=== PATIENT | male | born 1985 | race Caucasian/White ===

== ENCOUNTER → 2018-05-12 15:01 | Outpatient (CLI) | payer MEDICAID, SELFPAY ==
--- NOTE | 2018-05-12 15:03 | MR_ITS ---
MR cervical spine wo con, MR 3-d myelogram/MRCP HISTORY: PT states neck pain X 2-3 years. Left shoulder pain. No injury. ITS.REASON: neck pain ORDERING PHYSICIAN: Eugene Woo MD PATIENT AGE: 33 years Comparison: X-RAY 08/15/16 TECHNIQUE: Standard multiplanar multiecho sequences are performed without contrast. 3-D MIP and myelographic images are also rendered and reviewed FINDINGS: There is normal alignment. The craniocervical junction has an unremarkable appearance. C2-C3 and C3-C4 have an unremarkable appearance. C4-C5: Minimal bulging disc slightly eccentric to the left without impingement. C5-C6: Minimal bulging disc without impingement C6-C7: Unremarkable. C7-T1: Unremarkable. No disc herniation or canal stenosis. The cervical cord has an unremarkable appearance. There is some straightening of the cervical lordosis which could be due to patient positioning or muscle chiasm. IMPRESSION: 1. Minimal bulging disc at C4-C5 slightly eccentric to the left and at C5-C6 without impingement 2. No canal stenosis or extruded herniated disc evident. 3. Nonspecific straightening of cervical lordosis
== END ==
PROVIDERS: PCP Emergency Medicine; Visit Provider Emergency Medicine
DX: M54.2 Cervicalgia (principal)
CPT/HCPCS: 72141; 76376

== ENCOUNTER → 2019-05-18 11:05 | Outpatient (CLI) | payer BC, SELFPAY ==
--- NOTE | 2019-05-18 11:09 | XR_ITS ---
PROCEDURE: XR CHEST 2V CLINICAL HISTORY: COUGH Cough and fever COMPARISON: Chest from 07/28/2018 FINDINGS: The cardiomediastinal silhouette and pulmonary vascularity are within normal limits. The lungs are clear without infiltrates, suspicious nodules, or pleural effusions. Nodular opacity noted over the left midlung at the 5th interspace and may be due to nipple shadow. No acute bony findings. IMPRESSION: No acute findings. Dictated by: Brennon Daigle MD 05/18/2019 11:49 Electronically signed by Brennon Daigle MD in [place] 05/18/2019 11:49
[2019-05-18 13:17] LABS: Adenovirus,PCR Not Detected (NotDetected); Bordetella Pertussis Not Detected (NotDetected); Chlamydophila Pneumoniae, PCR Not Detected (NotDetected); Coronavirus 229E Not Detected (NotDetected); Coronavirus NL63 Not Detected (NotDetected); Coronavirus OC43 Not Detected (NotDetected); Coronovirus HKU1,PCR Not Detected (NotDetected); Human Metapneumovirus Not Detected (NotDetected); Influenza A, PCR Not Detected (NotDetected); Influenza AH1, 2009 Not Detected (NotDetected); Influenza AH1, PCR Not Detected (NotDetected); Influenza AH3,PCR Not Detected (NotDetected); Influenza B, PCR Not Detected (NotDetected); Mycoplasma Pneumoniae, PCR Not Detected (NotDetected); Parainfluenza 1, PCR Not Detected (NotDetected); Parainfluenza 2, PCR Not Detected (NotDetected); Parainfluenza 3, PCR Not Detected (NotDetected); Parainfluenza 4, PCR Not Detected (NotDetected); Respiratory Syncytial Virus Not Detected (NotDetected); Rhinovirus/Enterovirus Not Detected (NotDetected)
== END ==
PROVIDERS: PCP Nurse Practitioner Family; Visit Provider Nurse Practitioner Family
DX: R50.9 Fever, unspecified (principal); R05 Cough; J06.9 Acute upper respiratory infection, unspecified
CPT/HCPCS: 71046; 87486; 87581; 87633; 87798; U0003

== ENCOUNTER 2019-10-22 15:00 | Emergency (ER) | payer BC, SELFPAY ==
[2019-10-22 15:07] VITALS: BP 144/80; PULSE 79; RESP 19; TEMP 36.8; O2SAT 98; BMI 23.0
--- NOTE | 2019-10-22 15:27 | HMH.EDUTC ---
[facility] [place] Impression: Low back pain Qualifiers: Chronicity: unspecified Back pain laterality: right Sciatica presence: with sciatica Sciatica laterality: sciatica of right side Qualified Code(s): M54.41 - Lumbago with sciatica, right side Disposition: Home, Self-Care Condition on Discharge: Good Instructions: Low Back Pain, DI for Low Back Pain, Etodolac Additional Instructions: *Etodolac lola 6 hours with meal as needed for pain/inflammation *Not additional anti-inflammatory like motrin, aleve, advil with the above amount of Etodolac. You can still take Tylenol every 4 hours as needed if you need something else for pain *Ice 20 minutes every 2 hours for the first 48 hours after the initial injury followed by moist heat every 20 minutes 3-4 times a day to affected area *Muscle relaxer every 8 hours as needed for muscle spasms but remember, it WILL cause drowsiness You cannot take it and drive, operate machinery or care for small children. *Keep this area active, no movement leads to more stiffness, However take it easy and avoid heavy lifting pushing or pulling Over the counter Muscle rubs like biofreeze may help with pain and discomfort *Follow up with you family doctor if no improvement for further treatment in the next 48-72 hours Return if needed Straight to ER if any worsening of symptoms or loss of control of bowel or bladder Prescriptions: Cyclobenzaprine HCl [Flexeril 10mg tablet] 10 mg PO Q8HP PRN #9 tab PRN Reason: Muscle Spasm Transmission Status: Pending to [facility] Etodolac [Etodolac 200mg Cap*] 200 mg PO Q6H PRN #20 cap PRN Reason: Moderate Pain Transmission Status: Pending to [facility] Referrals: Eugene Woo MD [Primary Care Provider] - As needed Time of Disposition: 15:42 Medical Decision Making - Bright Inquiry Pt receiving controlled substance: No Bright was queried for this patient: No Vital Signs: 10/22/19 15:07 Temperature 98.2 F Temperature Source Oral Pulse Rate [Right Brachial] 79 Respiratory Rate 19 Blood Pressure [Right Arm] 144/80 H Blood Pressure Mean [Right Arm] 101 Blood Pressure Source [Right Arm] Automatic Cuff Blood Pressure Position [Right Arm] Sitting 02 Sat by Pulse Oximetry 98 Oxygen Delivery Method Room Air [facility] [place] - General Stated complaint: Pain on R side Time Seen by Provider: 10/22/19 15:28 Mode of Arrival: Ambulatory Source of Information: Patient Limitations: No Limitations Description of Symptoms (Recalled from Triage Doc. by RN): PATIENT C/O CONSTANT RIGHT SIDE PAIN X 2 WEEKS. 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 and for the last two weeks he has been having achy like pain in his right lower back area States that he has a history of sciatica and feels adrián like that when it starts States that he hasnt had any fever, denies known injury denies radiation of pain and denies loss of control of bowel or bladder - Related Data Previous Rx's Medication Instructions Recorded Cyclobenzaprine HCl [Flexeril 10mg 10 mg PO Q8HP PRN #9 tab 10/22/19 tablet] Etodolac [Etodolac 200mg Cap*] 200 mg PO Q6H PRN #20 cap 10/22/19 Allergies Allergy/AdvReac Type Severity Reaction Status Date / Time prednisone [PREDNISONE] Allergy Intermediate Verified 05/18/19 10:11 - Worker's Comp Is this a Worker's Comp case?: No [facility] History - Hepatitis A Screen Drug use history?: No High risk sexual behaviors?: No History of sexually transmitted infection?: No Currently employed?: No Childcare worker?: No Do you have indoor plumbing?: Yes Do you have electricity?: Yes Attestation statement:: This patient
[2019-10-22 15:49] VITALS: BP 144/80; PULSE 79; RESP 19; TEMP 36.8; O2SAT 98
[2019-10-22 15:55] LABS: Apearance,Urine Clear (Clear); Blood, Urine Negative (Negative); Color,Urine Yellow (Yellow); Glucose,Urine (UA) Negative (Negative); Ketones,Urine Negative (Negative); Protein,Urine Negative (Negative)
[2019-10-22 15:56] LABS: Bilirubin,Urine Negative (Negative); UTC Leukocyte Esterase,Urine Negative (Negative); UTC Nitrate,Urine Negative (Negative); Urobilinogen,Urine 1 EU/dl (0.2)
== END 2019-10-22 15:54 | disposition home or self-care (01) ==
PROVIDERS: Emergency Provider Nurse Practitioner; PCP Emergency Medicine
DX: M54.41 Lumbago with sciatica, right side (principal); F17.210 Nicotine dependence, cigarettes, uncomplicated; Z88.8 Allergy status to other drugs, medicaments and biological substances
CPT/HCPCS: 81003; 99201

== ENCOUNTER 2019-12-22 13:27 | Emergency (ER) | payer BC, SELFPAY ==
[2019-12-22 13:36] VITALS: BP 131/83; PULSE 100; RESP 18; TEMP 36.7; O2SAT 99; BMI 23.0
--- NOTE | 2019-12-22 13:45 | HMH.EDUTC ---
[facility] [place] Impression: Sinusitis Qualifiers: Sinusitis location: unspecified location Chronicity: unspecified Qualified Code(s): J32.9 - Chronic sinusitis, unspecified Disposition: Home, Self-Care Condition on Discharge: Good Instructions: Preventing the Spread of Coronavirus Discharge Instructions, Sore Throat, DI for Sinusitis, Sinusitis Additional Instructions: *Monitor Temp, Over the counter Motrin or Tylenol as directed/as needed Tylenol every 4 hours and Motrin every 6 hours (as long as your family doctor has told you that you can take it) for fever or pain. and straight to ER if unable to lower temp less than 101.0 after medication given *Warm salt water gargles may help to soothe the throat *Throat Lozenges *Warm fluids like tea with honey may help to soothe the throat *Sleep elevated *Humidifier/Vaporizer *Flonase 2 sprays in each nostril daily but be aware that it may take 2-3 days before you notice improvement *Bromfed may cause drowsiness. Know how it effects you (your child) before driving, caring for small child, or sending your child to school. Not other antihistamines/allergy medications while taking bromfed Your throat swab was sent for culture. Those results are typically sent to your primary care. Be sure to follow up in 2-3 days with your family doctor/primary care physician if no improvement so they can review those result and treat if necessary. If you don?t have a primary care doctor, I recommend you get one but in the mean time, you will have to return to a walk in clinic Follow up IMMEDIATELY for new or worsening symptoms or no Noticeable improvement over the next 48-72 hours. 911 for difficulty breathing or swallowing You was tested for today for COVID19 your test result should be back later this evening, you may call back later this evening to see if your test results are back and the result You was given a handout with instructions for Self Quarantine and Self isolation for while you wait on test results and what to do if they are positive Prescriptions: Azithromycin [Z-Emory 250mg Tab] 250 mg PO DIRECTED #6 tab Transmission Status: Pending to [facility] Referrals: Eugene Woo MD [Primary Care Provider] - As needed Forms: Work/School Release Time of Disposition: :51 Medical Decision Making - Bright Inquiry Pt receiving controlled substance: No Bright was queried for this patient: No Vital Signs: 12/22/19 13:36 Temperature 98.1 F Temperature Source Oral Pulse Rate [Radial] 100 H Respiratory Rate 18 Blood Pressure [Right Arm] 131/83 Blood Pressure Mean [Right Arm] 99 Blood Pressure Source [Right Arm] Automatic Cuff Blood Pressure Position [Right Arm] Sitting 02 Sat by Pulse Oximetry 99 Oxygen Delivery Method Room Air - Lab Data Lab results reviewed: Yes: I reviewed the patient's lab results. Orders (Tests/Meds): ORDERS Category Date Time Status Covid-19 Nasal PCR ([facility]) Routine Lab 12/22/19 13:36 Received [facility] [place] - General Stated complaint: fever,sore throat,weak Time Seen by Provider: 12/22/19 13:45 Mode of Arrival: Ambulatory Source of Information: Patient Limitations: No Limitations Description of Symptoms (Recalled from Triage Doc. 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
[2019-12-22 14:00] LABS: UTC Strep Screen (Rapid) Negative (Negative)
[2019-12-22 14:13] VITALS: BP 131/83; PULSE 100; RESP 18; TEMP 36.7; O2SAT 99
== END 2019-12-22 14:15 | disposition home or self-care (01) ==
PROVIDERS: Emergency Provider Nurse Practitioner; PCP Emergency Medicine
DX: Z20.828 Contact with and (suspected) exposure to other viral communicable diseases (principal); J32.9 Chronic sinusitis, unspecified; F17.210 Nicotine dependence, cigarettes, uncomplicated
CPT/HCPCS: 87880; 99202; U0003

== ENCOUNTER 2020-02-12 15:43 | Emergency (ER) | payer BC, SELFPAY ==
[2020-02-12 15:48] VITALS: BP 141/81; PULSE 92; RESP 18; TEMP 36.6; O2SAT 98; BMI 23.6
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
[2020-02-12 16:21] VITALS: BP 124/72; PULSE 91; RESP 20; TEMP 36.9; O2SAT 96; BMI 23.6
[2020-02-12 16:35] VITALS: BP 117/70; PULSE 70; O2SAT 98
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
[2020-02-12 16:47] LABS: Basophils # 0.1 K/mm3 (0-0.2); Basophils % 0.6 % (0.1-2.0); Eosinophils # 0.2 K/mm3 (0.0-0.4); Eosinophils % 1.8 % (0.1-12.0); Hematocrit 44.8 % (42.0-52.0); Hemoglobin 16.1 g/dL (14.1-18.0); Lymphocytes # 1.6 K/mm3 (0.7-4.5); Lymphocytes % 17.2 % (10-50); Mean Corpuscular Hemoglobin 32.4 pg (27.0-31.2); Mean Corpuscular Volume 89.9 fl (80-94); Mean Platelet Volume 7.7 fl (7.4-10.4); Monocytes # 0.6 K/mm3 (0.1-1.0); Neutrophils # 6.8 K/mm3 (1.8-7.8); Neutrophils % 74.3 % (37.0-80.0); Platelet Count 267 K/mm3 (142-424); Red Blood Count 4.99 M/mm3 (4.60-6.20); White Blood Count 9.2 K/mm3 (4.8-10.8)
[2020-02-12 16:50] LABS: Chloride 104 mmol/L (98-107); Potassium 4.1 mmoL/L (3.5-5.1); Sodium 138 mmol/L (136-145)
[2020-02-12 16:52] LABS: Blood Urea Nitrogen 17 mg/dl (9-20); Creatinine Clearance Estimated 77 mL/min (50-200); Estimated Glomerular Filt Rate 58 ml/min (>60); GFR (African American) 71 ML/MIN (>60)
[2020-02-12 16:53] LABS: Alanine Aminotransferase 22 U/L (12-78); Albumin Level 4.1 g/dl (3.5-5.0); Albumin/Globulin Ratio 1.3 (1.1-1.8); Alkaline Phosphatase 66 U/L (38-126); Anion Gap 8.1 mEq/L (5-15); Aspartate Amino Transferase 27 U/L (17-59); Bilirubin,Total 0.6 mg/dl (0.2-1.3); Calcium 9.4 mg/dl (8.4-10.2); Carbon Dioxide 30 mmol/L (22.0-30.0); Globulin 3.1 g/dL (1.3-3.2); Glucose 90 mg/dl (74-100); Total Protein,Serum 7.2 g/dl (6.3-8.2)
[2020-02-12 17:29] VITALS: BP 145/92; PULSE 64; O2SAT 98
[2020-02-12 18:00] VITALS: BP 138/78; PULSE 72; RESP 20; O2SAT 99
[2020-02-12 18:45] VITALS: BP 138/78; PULSE 72; RESP 20; TEMP 36.9; O2SAT 99
== END 2020-02-12 18:46 | disposition home or self-care (01) ==
LOC: UTC 15:47 → ER 16:05
PROVIDERS: Emergency Provider Emergency Medicine; PCP Emergency Medicine
DX: S30.1XXA Contusion of abdominal wall, initial encounter (principal); V29.3XXA Motorcycle rider (driver) (passenger) injured in unspecified nontraffic accident, initial encounter; Y92.89 Other specified places as the place of occurrence of the external cause; F17.210 Nicotine dependence, cigarettes, uncomplicated
CPT/HCPCS: 74177; 80053; 85025; 99283; Q9967

== ENCOUNTER → 2020-02-22 13:27 | Outpatient (CLI) | payer BC, SELFPAY ==
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
== END ==
PROVIDERS: PCP Emergency Medicine; Visit Provider Surgery
DX: S30.1XXA Contusion of abdominal wall, initial encounter (principal)
CPT/HCPCS: 76882

== ENCOUNTER → 2020-04-19 15:41 | Outpatient (CLI) | payer BC, SELFPAY ==
--- NOTE | 2020-04-19 15:46 | US_ITS ---
PROCEDURE: US EXTREMITY LT LIMITED CLINICAL INDICATION: Lt groin lumph node enlargement COMPARISON: CT ABDPELW/O CT ABD PELVIS W/O CONTRAST from 09/26/[address] ABDOMEN PELVIS W CON from 02/12/2020 FINDINGS: There is a 3.6 x 0.7 centimeter left groin lymph node with hilar blood flow but asymmetry. No discretely abnormal areas in the cortex. There is an adjacent 1.7 by 1.6 x 0.5 centimeter lymph node with normal hilar blood flow. Differential diagnosis for adenopathy is infectious versus neoplastic versus inflammatory causes. IMPRESSION: Enlarged left groin lymph node as described above. Dictated by: Violet Banegas MD 04/19/2020 17:29 Violet Banegas MD in [place] 04/19/2020 17:29
== END ==
LOC: RAD 15:43
PROVIDERS: PCP Emergency Medicine; Visit Provider Surgery
DX: R59.9 Enlarged lymph nodes, unspecified (principal)
CPT/HCPCS: 76882

== ENCOUNTER 2020-05-25 09:57 | Emergency (ER) | payer BC, SELFPAY ==
[2020-05-25 09:58] VITALS: BP 138/62; PULSE 70; RESP 16; TEMP 36.6; O2SAT 98; BMI 23.0
[2020-05-25 10:03] VITALS: BP 138/62; PULSE 66; O2SAT 96
--- NOTE | 2020-05-25 10:06 | HMH.EDGENADL ---
ED Disposition Clinical Impression: Burn of hand, second degree Qualifiers: Encounter type: initial encounter Burn of hand location: palm Laterality: left Qualified Code(s): T23.252A - Burn of second degree of left palm, initial encounter Disposition: Home, Self-Care Condition on Discharge: Good Instructions: DI for Barr Additional Instructions: Additional instructions for BARR: Clean your burn with a warm, wet, soapy washcloth each day by stroking over the burn one time. This will remove any loose blisters. Any blisters that remain will come off on subsequent days. Apply antibiotic ointment and bandage. Continue this treatment daily until the burn heals, usually 1-2 weeks. Return if high fever greater than 101 degrees, pus drainage, red streaks. Frankford as needed for pain. Tylenol or ibuprofen for less severe pain. Additional instructions for CONTROLLED SUBSTANCES: You have been prescribed a medication that is a controlled substance. Controlled substances include pain medications known as opiates and sedative nerve medications known as benzodiazepines. Tramadol, fioricet, and gabapentin are also controlled substances. Some common opiates include: Codeine (such as Tylenol #3) Hydrocodone (Vicodin, Lortab, Lorcet, Frankford) Oxycodone (Percocet, Percodan, Oxycodone, Oxy IR) Some common benzodiazepines include: Diazepam (Valium) Lorazepam (Ativan) Alprazolam (Xanax) Clonazepam (Klonopin) Oxazepam (Serax) All of these controlled substances are highly addictive and frequently abused. Misuse can and frequently does lead to addiction as well as overdose and . Medication should be stored in a locked cabinet or other secure storage unit. Do not store the medication in a motor vehicle. Short term supplies, 3 days or less, are prescribed because of the highly addictive nature of the medication. Any of the controlled substance medication NOT taken should be disposed of properly and NOT SAVED. The recommended method of disposing of unused medications is: Place the medicines in a sealable plastic bag. If the medicine is a solid, crush it or add water to dissolve it. Add something undesirable (cat litter, coffee grounds, etc.) Dispose of sealed bag in household trash Do not flush or pour unused medicines down a sink or drain. Controlled substances should not be shared, given away or sold. Because of the addictive nature and frequent abuse, these medications are sometimes stolen. These medications should be kept in a safe place where they cannot be stolen. Do not keep them in your car or purse. Lost or stolen prescriptions for controlled substances WILL NOT BE REFILLED in this emergency department, regardless of whether a police report was filed. Prescriptions: Hydrocod/Acet 5/325 mg [Frankford 5/325mg tablet] 1 tab PO Q6HP PRN #8 tab PRN Reason: Pain Transmission Status: Sent to [id number] Referrals: Eugene Woo MD [Primary Care Provider] - Forms: Work/School Release - Critical Care Critical Care Time: No Attestation: On , the high probability of a clinically significant, sudden or life threatening deterioration of the following system(s) required my full and direct attention, intervention and personal management. The time I documented below is in addition to time spent performing reported procedures but includes the following listed in this critical care notation. Medical Decision Making - Bright Inquiry Pt receiving controlled substance: Yes Bright was queried for this patient: Yes Risks and benefits of using a controlled substance: were discussed with pt by me Vital Signs: 05/25/20 09:58 05/25/20 10:03 Temperature 98 F Temperature Source Oral Pulse Rate 66 Pulse Rate [Radial] 70 Respiratory Rate 16 Blood Pressure 138/62 Blood Pressure [Right Arm] 138/62 Blood Pressure Mean 92 Blood Pressure Mean [Right Arm] 87 Blood Pressure Position [Right Arm] Sitting
--- NOTE | 2020-05-25 10:26 | PC.NURSE ---
PSO, ADAPTIC DRESSING APPLIED TO LT HAND
[2020-05-25 10:27] VITALS: BP 133/74; PULSE 78; RESP 16; TEMP 36.6; O2SAT 98
== END 2020-05-25 10:28 | disposition home or self-care (01) ==
PROVIDERS: Emergency Provider Emergency Medicine; PCP Emergency Medicine
DX: T23.252A Burn of second degree of left palm, initial encounter (principal); X17.XXXA Contact with hot engines, machinery and tools, initial encounter; Y92.69 Other specified industrial and construction area as the place of occurrence of the external cause; Y99.0 Civilian activity done for income or pay
CPT/HCPCS: 99281

== ENCOUNTER 2020-12-04 09:13 | Emergency (ER) | payer SELFPAY ==
[2020-12-04 09:15] VITALS: BP 125/71; PULSE 88; RESP 18; TEMP 36.6; O2SAT 98; BMI 23.6
[2020-12-04 09:34] LABS: UTC Strep Screen (Rapid) Negative (Negative)
--- NOTE | 2020-12-04 09:50 | HMH.EDUTC ---
[facility] [place] Disposition Clinical Impression: Viral syndrome Pharyngitis Qualifiers: Pharyngitis/tonsillitis etiology: unspecified etiology Qualified Code(s): J02.9 - Acute pharyngitis, unspecified Disposition: Home, Self-Care Condition on Discharge: Good Instructions: DI for Pharyngitis/Tonsillopharyngitis -- Adult, DI for COVID-19 (Suspected or Confirmed ), Preventing the Spread of Coronavirus Discharge Instructions Additional Instructions: Drink plenty of fluids. Take tylenol or ibuprofen for pain or fever. Take the medications as directed. Follow up with your regular doctor. GO TO THE ER FOR ANY WORSENING SYMPTOMS Quarantine until you know the results of your covid-19 test. If it is positive, the health department should call you and give you further instructions about your length of Quarantine and other things. Notify your school or workplace of your results and follow their instructions regarding return to work/school. Prescriptions: Brompheniramine/Pseudoephed/Dm [Bromfed Dm Cough Syrup] 5 ml PO Q6HP PRN #240 ml PRN Reason: Cough Transmission Status: Received by [facility] Azithromycin [Z-Emory 250mg Tab*] 250 mg PO UD DOSE PK #6 tab Transmission Status: Received by [facility] Referrals: Eugene Woo MD [Primary Care Provider] - Forms: Work/School Release Time of Disposition: 09:53 Medical Decision Making - Medical Records Medical records reviewed: No: I reviewed the patient's medical records. - Rbight Inquiry Pt receiving controlled substance: No Vital Signs: 12/04/20 09:15 12/04/20 09:58 Temperature 97.9 F 97.9 F Temperature Source Oral Pulse Rate 88 Pulse Rate [Right Brachial] 88 Respiratory Rate 18 18 Blood Pressure 125/71 Blood Pressure [Right Arm] 125/71 Blood Pressure Mean [Right Arm] 89 Blood Pressure Source [Right Arm] Automatic Cuff Blood Pressure Position [Right Arm] Sitting 02 Sat by Pulse Oximetry 98 Oxygen Delivery Method Room Air - Lab Data Lab results reviewed: Yes: I reviewed the patient's lab results. Lab Results 12/04/20 09:27: Strep Scn Rapid Clinic Negative Orders (Tests/Meds): ORDERS Category Date Time Status Covid-19 Nasal PCR ([facility]) Routine Lab 12/04/20 09:35 Received Strep Screen Confirmation Routine Micro 12/04/20 09:27 Received [facility] [place] HPI - General Stated complaint: trouble swallowing, sore throat Time Seen by Provider: 12/04/20 09:20 Mode of Arrival: Ambulatory Source of Information: Patient Limitations: No Limitations Description of Symptoms (Recalled from Triage Doc. by RN): PATIENT C/O TROUBLE SWALLOWING AND WEAKNESS X 3 DAYS HEENT Symptoms (Recalled from RN notes): Yes Resp Symptoms (Recalled from RN notes): No Skin Symptoms (Recalled from RN notes): No MS Symptoms (Recalled from RN notes): No Functional Status (Recalled from RN notes): WNL - History of Present Illness Provider Complaint: He c/o sore throat and feeling bad for the past 3 days. He has had chilling, but no documented fever. He denies body aches. - Related Data Previous Rx's Medication Instructions Recorded Azithromycin [Z-Emory 250mg Tab*] 250 mg PO UD DOSE PK #6 tab 12/04/20 Brompheniramine/Pseudoephed/Dm 5 ml PO Q6HP PRN #240 ml 12/04/20 [Bromfed Dm Cough Syrup] Allergies Allergy/AdvReac Type Severity Reaction Status Date / Time prednisone [PREDNISONE] Allergy Intermediate Verified 07/12/20 15:03 - Worker's Comp Is this a Worker's Comp case?: No [facility] History - Hepatitis A Screen Drug use history?: No High risk sexual behaviors?: No History of sexually transmitted infection?: No Currently employed?: No Childcare worker?: No Do you have indoor plumbing?: Yes Do you have electricity?: Yes Attestation statement:: This patient has been screened for Hepatitis A risk factors. I have reviewed the patient's past medical history: Yes Medical History: Denies:: Cancer, Diabetes Mellitus Type 1, D
[2020-12-04 09:58] VITALS: BP 125/71; PULSE 88; RESP 18; TEMP 36.6; O2SAT 98
== END 2020-12-04 10:00 | disposition home or self-care (01) ==
PROVIDERS: Emergency Provider Nurse Practitioner Family; PCP Emergency Medicine
DX: B34.9 Viral infection, unspecified (principal); Z20.822 Contact with and (suspected) exposure to COVID-19; J02.9 Acute pharyngitis, unspecified; F17.210 Nicotine dependence, cigarettes, uncomplicated
CPT/HCPCS: 87880; 99203; C9803; G0463; U0003; U0005

== ENCOUNTER → 2021-03-07 14:18 | Outpatient (CLI) | payer OTHER, SELFPAY | PROVIDERS: PCP Emergency Medicine; Visit Provider Nurse Practitioner | DX: Z20.822 Contact with and (suspected) exposure to COVID-19 (principal) | CPT/HCPCS: C9803; U0003; U0005 ==

== ENCOUNTER 2021-06-10 23:10 | Emergency (ER) | payer SELFPAY ==
[2021-06-10 23:35] VITALS: BP 116/79; PULSE 71; RESP 17; TEMP 36.6; O2SAT 99; BMI 25.1
--- NOTE | 2021-06-10 23:39 | XR_ITS ---
PROCEDURE INFORMATION: Exam: XR Right Hand Exam date and time: 06/10/2021 11:54 PM Age: 36 years old Clinical indication: Injury or trauma; Other: Hand got caught in storm door; Crushing; Right; Additional info: Slammed thumb in car door TECHNIQUE: Imaging protocol: XR Right hand. Views: 3 or more views. COMPARISON: No relevant prior studies available. FINDINGS: Bones/joints: No evidence of acute fracture. Individual joint spaces of the right hand appear well maintained. Osseous mineralization is normal. There is a small enostosis noted within the distal radius. Soft tissues: Normal. IMPRESSION: No evidence of acute fracture or significant overlying soft tissue swelling.
--- NOTE | 2021-06-11 00:58 | HMH.EDGENADL ---
ED Disposition Clinical Impression: Injury of right thumb, Subungual hematoma of right thumb Disposition: Home, Self-Care Condition on Discharge: Good Instructions: Trauma Additional Instructions: Return to the ED for any new or worsening symptoms, or for further concerns (such as but not limited to worsening or uncontrolled pain, prolonged numbness or tingling, worsening swelling, pale skin changes). Referrals: Eugene Woo MD [Primary Care Provider] - - Critical Care Critical Care Time: No Attestation: On 06/10/21, the high probability of a clinically significant, sudden or life threatening deterioration of the following system(s) required my full and direct attention, intervention and personal management. The time I documented below is in addition to time spent performing reported procedures but includes the following listed in this critical care notation. Medical Decision Making - Bright Inquiry Pt receiving controlled substance: Yes Bright was queried for this patient: No Risks and benefits of using a controlled substance: were not discussed with pt by me Vital Signs: 06/10/21 23:35 06/11/21 01:20 Temperature 97.8 F 98.5 F Temperature Source Oral Oral Pulse Rate 82 Pulse Rate [Right Brachial] 71 Respiratory Rate 17 18 Blood Pressure 109/82 L Blood Pressure [Right Arm] 116/79 Blood Pressure Mean [Right Arm] 91 Blood Pressure Source Automatic Cuff Blood Pressure Source [Right Arm] Automatic Cuff Blood Pressure Position Sitting Blood Pressure Position [Right Arm] Sitting 02 Sat by Pulse Oximetry 99 Oxygen Delivery Method Room Air Room Air Orders (Tests/Meds): ED MEDICATIONS Discontinued Medications Generic Name Dose Route Start Last Admin Trade Name Freq PRN Reason Stop Dose Admin Hydrocodone Bitart/Acetaminophen 2 tab 06/10/21 23:48 06/10/21 23:59 Hydrocodone/Apap 5/325 Mg Tablet PO 06/10/21 23:49 2 tab ONCE ONE Administration Medical Decision Narrative: DDx includes but not limited to phalanx fracture, dislocation, subungual hematoma. HDS, NAD, neurovascularly intact. Well appearing with no other injuries other than right thumb injury. XR without evidence of acute bony trauma. Pt given oral analgesia here in the ED with significant improvement of pain. Offered nail trephination here in the ED for subungual hematoma and it was done but without significant drainage. Pt stable for discharge. Given strict ED return precautions. General Adult HPI - General Chief complaint: Extremity Injury, Upper Stated complaint: AO 04/10/22 20:00 Injury right thumb Time Seen by Provider: 06/11/21 00:25 Mode of Arrival: Family Vehicle Limitations: No Limitations Description of Symptoms (Recalled from ER Triage Doc. by RN): pt accidentally slammed his right thumb in a car door. Pt states it squirted blood everywhere and won't quit hurting - History of Present Illness HPI narrative: 36 yo male presents for right thumb injury. States he accidentally closed car door on right thumb. States it was bleeding earlier but has stopped after putting pressure on it. States he has pain in that area with swelling after tonight's events. Denies other trauma. - Related Data Previous Rx's Medication Instructions Recorded Azithromycin [Z-Emory 250mg Tab*] 250 mg PO UD DOSE PK #6 tab 12/04/20 Brompheniramine/Pseudoephed/Dm 5 ml PO Q6HP PRN #240 ml 12/04/20 [Bromfed Dm Cough Syrup] Allergies Allergy/AdvReac Type Severity Reaction Status Date / Time prednisone [PREDNISONE] Allergy Intermediate Verified 07/12/20 15:03 [facility] History - Hepatitis A Screen Drug use history?: No High risk sexual behaviors?: No History of sexually transmitted infection?: No Currently employed?: No Childcare worker?: No Do you have indoor plumbing?: Yes Do you have electricity?: Yes Attestation statement:: This patient has been screened for Hepatitis A risk factors. Medical History: Denies:: Ca
[2021-06-11 01:20] VITALS: BP 109/82; PULSE 82; RESP 18; TEMP 36.9; O2SAT 99
== END 2021-06-11 01:22 | disposition home or self-care (01) ==
PROVIDERS: Emergency Provider Student in an Organized Health Care Education/Training Program; PCP Emergency Medicine
DX: S69.91XA Unspecified injury of right wrist, hand and finger(s), initial encounter (principal); S60.111A Contusion of right thumb with damage to nail, initial encounter; Z88.8 Allergy status to other drugs, medicaments and biological substances; Z87.891 Personal history of nicotine dependence; W23.0XXA Caught, crushed, jammed, or pinched between moving objects, initial encounter
CPT/HCPCS: 73130; 99213; G0463

== ENCOUNTER 2021-10-11 17:56 | Emergency (ER) | payer SELFPAY ==
[2021-10-11 17:57] VITALS: BP 138/49; PULSE 108; RESP 18; TEMP 38.2; O2SAT 98; BMI 23.7
[2021-10-11 18:35] VITALS: BP 138/49; PULSE 108; RESP 18; TEMP 38.2; O2SAT 98; BMI 23.8
[2021-10-11 18:44] VITALS: BP 138/49; PULSE 108; RESP 18; TEMP 38.2; O2SAT 98
--- NOTE | 2021-10-11 19:07 | HMH.EDUTC ---
[facility] [place] Disposition Clinical Impression: Viral syndrome, Exposure to COVID-19 virus Disposition: Home, Self-Care Condition on Discharge: Good Instructions: DI for Fever (Symptom) -- Adult, DI for COVID-19 (Suspected or Confirmed ), Preventing the Spread of Coronavirus Discharge Instructions Additional Instructions: *Monitor Temp, Over the counter Motrin or Tylenol as directed/as needed Tylenol every 4 hours and Motrin every 6 hours (as long as your family doctor has told you that you can take it) for fever or pain. and straight to ER if unable to lower temp less than 101.0 after medication given *Warm salt water gargles may help to soothe the throat *Throat Lozenges *Warm fluids like tea with honey may help to soothe the throat *Sleep elevated *Humidifier/Vaporizer Follow up IMMEDIATELY for new or worsening symptoms or no Noticeable improvement over the next 48-72 hours. 911 for difficulty breathing or swallowing You were tested for today for COVID19 your test result should be back in the next 24-48 hours, you may check your results on the [facility] My Health Portal Make sure to take your Vitamins Vit. C Vit D and Zinc if you can take them Referrals: Eugene Woo MD [Primary Care Provider] - As needed Forms: Work/School Release Medical Decision Making - Bright Inquiry Pt receiving controlled substance: No Bright was queried for this patient: No Vital Signs: 10/11/21 17:57 10/11/21 18:35 10/11/21 18:44 Temperature 100.8 F H 100.8 F H 100.8 F H Temperature Source Oral Oral Pulse Rate 108 H Pulse Rate [Radial] 108 H 108 H Respiratory Rate 18 18 18 Blood Pressure 138/49 L Blood Pressure [Right Arm] 138/49 L 138/49 L Blood Pressure Mean [Right Arm] 78 78 Blood Pressure Source [Right Arm] Automatic Cuff Blood Pressure Position [Right Arm] Sitting Sitting 02 Sat by Pulse Oximetry 98 98 Oxygen Delivery Method Room Air Room Air Orders (Tests/Meds): ORDERS Category Date Time Status Covid-19 Nasal PCR ([facility]) Routine Lab 10/11/21 18:33 Received [facility] [place] HPI - General Stated complaint: COVID+.[id number] Time Seen by Provider: 10/11/21 19:07 Mode of Arrival: Ambulatory Source of Information: Patient Limitations: No Limitations Description of Symptoms (Recalled from Triage Doc. by RN): PATIENT C/O FEVER AND BODY ACHES. REPORTS A POSITIVE AT HOME COVID TEST HEENT Symptoms (Recalled from RN notes): No Resp Symptoms (Recalled from RN notes): No Skin Symptoms (Recalled from RN notes): No MS Symptoms (Recalled from RN notes): No Functional Status (Recalled from RN notes): WNL - History of Present Illness Provider Complaint: Patient states that his son is positive for COVID States that he has been having fever, chills, bodyaches and over all not feeling well today States that he took a home COVID test and it was positive States that his fever was high earlier and he took some Tylenol and it is better now - Related Data Allergies Allergy/AdvReac Type Severity Reaction Status Date / Time prednisone [PREDNISONE] Allergy Intermediate Verified 07/12/20 15:03 - Worker's Comp Is this a Worker's Comp case?: No [facility] History - Hepatitis A Screen Attestation statement:: This patient has been screened for Hepatitis A risk factors. I have reviewed the patient's past medical history: Yes Medical History: Denies:: Cancer, Diabetes Mellitus Type 1, Diabetes Mellitus Type 2, Internal Pacemaker, MRSA Other Surgeries: Yes: No Previous Surgery. No: Pacemaker Amputation: No Fractures: No - Social History Smoking Status: Current every day smoker Tobacco Type: cigarettes # Packs/Day (cigarettes): 1 #Yrs smoked (if former smoker): 14 Alcohol Intake: never Substance Use Type: denies use Occupational Status: employed Housing: house Household Members: spouse, children Family Hx:: Cancer, Diabetes ROS Obtained: Yes All systems reviewed & no additional complaints, Yes Systems reviewed as appropri
== END 2021-10-11 19:24 | disposition home or self-care (01) ==
PROVIDERS: Emergency Provider Nurse Practitioner; PCP Emergency Medicine
DX: U07.1 COVID-19 (principal)
CPT/HCPCS: 99212; C9803; G0463; U0003; U0005

== ENCOUNTER 2022-02-11 17:59 | Emergency (ER) | payer BC, SELFPAY ==
--- NOTE | 2022-02-11 19:09 | EXP.UTC ---
Discharge Plan Disposition Patient Disposition: Home, Self-Care Condition: Good Prescriptions Prescriptions: New wohientlsulpmur-pfthhmvlg-BR [Bromfed DM] 2-30-10 mg/5 mL Syrup 5 ml PO Q6H PRN (Reason: Cough) Qty: 240 0RF azithromycin [Zithromax] 250 mg tablet 250 mg PO UD DOSE PK Qty: 6 0RF Rx Instructions: Take two (2) tablets today, then one (1) tablet days #2 thru #5 oseltamivir [Tamiflu] 75 mg capsule 75 mg PO BID Qty: 10 0RF methylprednisolone 4 mg Tablets,Dose Pack 4 mg PO DIRECTED Qty: 21 0RF ondansetron 4 mg Tablet,Disintegrating 4 mg PO Q8H PRN (Reason: Nausea) Qty: 20 0RF Referrals Follow up/Referrals: Eugene Woo MD [Primary Care Provider] - See instructions Activity Restrictions/Add. Instructions Additional Instructions/Restrictions: Drink plenty of fluids. Take tylenol or ibuprofen for pain or fever. Take the medications as directed. Follow up with your regular doctor. GO TO THE ER FOR ANY WORSENING SYMPTOMS Clinical Impressions Clinical Impression: Viral illness, Bronchitis Stand Alone Forms Stand Alone Forms: Work/School Release Instructions Patient Instructions: DI for Influenza -- Adult, Oseltamivir Discharge ED Provider: Sean Lopes [facility] General Stated complaint: fever, sore throat, weakness, body aches Time Seen by Provider: 02/11/22 19:09 History of Present Illness Provider Complaint: He states that for the past 2 days he has had chills, fever, cough, and chest congestion. Related Data Previous Rx's Medication Instructions Recorded azithromycin 250 mg tablet 250 mg PO UD DOSE PK #6 tabs 02/11/22 (Zithromax) zdgxzddgbuaqjxh-pdfznjwvozmlgyq-VZ 5 ml PO Q6H PRN Cough #240 mL 02/11/22 2 mg-30 mg-10 mg/5 mL oral syrup (Bromfed DM) methylprednisolone 4 mg tablets in 4 mg PO DIRECTED #21 tabs 02/11/22 a dose pack ondansetron 4 mg disintegrating 4 mg PO Q8H PRN Nausea #20 tabs 02/11/22 tablet oseltamivir 75 mg capsule (Tamiflu) 75 mg PO BID #10 caps 02/11/22 Allergies Allergy/AdvReac Type Severity Reaction Status Date / Time prednisone [PREDNISONE] Allergy Intermediate Verified 02/11/22 19:19 [facility] Disclaimer: The information contained in this section may have been updated after the patient was seen, as this information can be updated by other users. Social History Smoking Status: Current every day smoker tobacco type: cigarettes packs per day: 1 second hand exposure: Yes alcohol intake: never substance use type: denies use current occupational status: employed Travel in the last 8 weeks: None household members: spouse and children housing: house caffeine: Yes ROS Obtained: Yes All systems reviewed & no additional complaints except as documented Constitutional Constitutional: Reports chills and Reports fever(s) Eyes Eyes: Denies eye discharge ENT Ears, Nose, Mouth, and Throat: Reports as per HPI Cardiovascular Cardiovascular: Denies chest pain Respiratory Respiratory: Denies chest congestion and Reports cough Gastrointestinal Gastrointestingal: Reports nausea; Denies abdominal pain, constipation, cramping, diarrhea or vomiting Musculoskeletal Musculoskeletal: Denies arthralgias Integumentary/Breasts Skin/Breast: Denies rash Neurologic Neurologic: Denies paresthesias Physical Exam General General appearance: alert and in no apparent distress Head Head exam: atraumatic, normocephalic and normal inspection Eye Eye exam: Present normal appearance, PERRL and EOMI ENT ENT exam: Present normal exam, normal oropharynx, mucous membranes moist, TM's normal bilaterally and normal external ear exam Neck Neck exam: Present normal inspection, full ROM and trachea midline; Absent meningismus or lymphadenopathy Chest Chest inspection: Present normal inspection and symmetric chest wall rise; Absent tenderness Respiratory Respir
[2022-02-11 19:15] LABS: Coronavirus 19, PCR Not Detected (NotDetected); Influenza A, PCR Not Detected (NotDetected); Influenza B, PCR Not Detected (NotDetected)
[2022-02-11 19:17] VITALS: BP 122/74; PULSE 71; RESP 18; TEMP 36.6; O2SAT 99; BMI 22.4
[2022-02-11 19:17] LABS: UTC Strep Screen (Rapid) Negative (Negative)
[2022-02-11 19:45] VITALS: BP 122/74; PULSE 71; RESP 18; TEMP 36.6
== END 2022-02-11 19:49 | disposition home or self-care (01) ==
PROVIDERS: Emergency Provider Nurse Practitioner Family; PCP Emergency Medicine
DX: J40 Bronchitis, not specified as acute or chronic (principal); B34.9 Viral infection, unspecified
CPT/HCPCS: 87880; 99212; C9803; G0463; U0003; U0005

== ENCOUNTER 2022-07-31 16:59 | Emergency (ER) | payer BC, SELFPAY ==
[2022-07-31 17:01] VITALS: BP 137/87; PULSE 94; RESP 16; TEMP 36.6; O2SAT 97; BMI 21.7
--- NOTE | 2022-07-31 17:02 | HMH.EDGENADL ---
Discharge Plan Disposition Patient Disposition: Home, Self-Care Prescriptions Prescriptions: New ibuprofen 800 mg tablet 800 mg PO TID PRN (Reason: pain) 7 Days Qty: 20 0RF cyclobenzaprine 5 mg tablet 5 mg PO TID PRN (Reason: muscle spasm) 5 Days Qty: 15 0RF No Action ubhqarpauyumlqf-rkpkqysxx-XR [Bromfed DM] 2-30-10 mg/5 mL Syrup 5 ml PO Q6H PRN (Reason: Cough) Qty: 240 0RF azithromycin [Zithromax] 250 mg tablet 250 mg PO UD DOSE PK Qty: 6 0RF Rx Instructions: Take two (2) tablets today, then one (1) tablet days #2 thru #5 oseltamivir [Tamiflu] 75 mg capsule 75 mg PO BID Qty: 10 0RF methylprednisolone 4 mg Tablets,Dose Pack 4 mg PO DIRECTED Qty: 21 0RF ondansetron 4 mg Tablet,Disintegrating 4 mg PO Q8H PRN (Reason: Nausea) Qty: 20 0RF Referrals Follow up/Referrals: Eugene Woo MD [Primary Care Provider] - See instructions Clinical Impressions Clinical Impression: Injury resulting from fall from height, Contusion of back, Contusion of hip, left Discharge ED Provider: Mandeep Bliss General Adult HPI General Chief complaint: PAIN Stated complaint: AO07/29 back LT , LT leg pain Time Seen by Provider: 07/31/22 17:02 History of Present Illness HPI narrative: Patient is a 37-year-old male presenting with back pain and hip pain following a fall from a roof 2 days ago. States it was about 15 feet he slipped fell onto his lower back which struck the side of his boat and then subsequently hit the ground. He has been able to walk and ambulate since that time but has pain in his mid thoracic lower lumbar and bilateral hip areas. He has no pain in his chest or his abdomen or his cervical spine or his head. No other long bone pain that he complains about. No lower extremity weakness no saddle anesthesia urinary incontinence or bowel incontinence. Related Data Previous Rx's Medication Instructions Recorded azithromycin 250 mg tablet 250 mg PO UD DOSE PK #6 tabs 02/11/22 (Zithromax) dbqekwatrggnqsd-bjypriljjvrhbhy-WW 5 ml PO Q6H PRN Cough #240 mL 02/11/22 2 mg-30 mg-10 mg/5 mL oral syrup (Bromfed DM) methylprednisolone 4 mg tablets in 4 mg PO DIRECTED #21 tabs 02/11/22 a dose pack ondansetron 4 mg disintegrating 4 mg PO Q8H PRN Nausea #20 tabs 02/11/22 tablet oseltamivir 75 mg capsule (Tamiflu) 75 mg PO BID #10 caps 02/11/22 cyclobenzaprine 5 mg tablet 5 mg PO TID PRN muscle spasm 5 07/31/22 days #15 tabs ibuprofen 800 mg tablet 800 mg PO TID PRN pain 7 days #20 07/31/22 tabs Allergies Allergy/AdvReac Type Severity Reaction Status Date / Time prednisone [PREDNISONE] Allergy Intermediate Verified 02/11/22 19:19 [facility] Disclaimer: The information contained in this section may have been updated after the patient was seen, as this information can be updated by other users. Social History Smoking Status: Current every day smoker tobacco type: cigarettes packs per day: 1 second hand exposure: Yes alcohol intake: never substance use type: denies use current occupational status: employed Travel in the last 8 weeks: None household members: spouse and children housing: house caffeine: Yes ROS Obtained: Yes All systems reviewed & no additional complaints except as documented Physical Exam General General appearance: alert and other (Patient in distress rolling around in pain placed on logroll precautions) Head Head exam: atraumatic and normocephalic Neck Neck exam: Absent tenderness Chest Chest inspection: Present normal inspection; Absent symmetric chest wall rise or tenderness Respiratory Respiratory exam: Present normal lung sounds bilaterally; Absent respiratory distress Cardiovascular Cardiovascular exam: Present regular rate; Absent tachycardia Back Exam Back exam: Present other (No ecchymosis or deformities there is tenderness palpation in the mid and lower T spi
--- NOTE | 2022-07-31 17:13 | XR_ITS ---
PROCEDURE INFORMATION: Exam: XR Chest Exam date and time: 07/31/2022 5:22 PM Age: 37 years old Clinical indication: Injury or trauma; Fall; Blunt trauma (contusions or hematomas); Patient HX: Fell off roof 2 days ago, pain in back and sometimes has numbness and tingling down left leg, smoker; Additional info: Fall off roof TECHNIQUE: Imaging protocol: Radiologic exam of the chest. Views: 1 view. COMPARISON: CR XR CHEST 2V 05/18/2019 11:09 AM FINDINGS: Lungs: No focal lung consolidation/contusion. Pleural spaces: No pneumothorax. No pleural effusion. Heart/Mediastinum: Normal cardiac silhouette. Calcified mediastinal lymph nodes again noted likely due to old granulomatous disease. Bones/joints: No fractures are detected. IMPRESSION: No acute findings.
--- NOTE | 2022-07-31 17:13 | XR_ITS ---
PROCEDURE INFORMATION: Exam: XR Pelvis Exam date and time: 07/31/2022 5:20 PM Age: 37 years old Clinical indication: Injury or trauma; Fall; Blunt trauma (contusions or hematomas); Bilateral; Pelvic region; Patient HX: Fell off roof 2 days ago, pain in back and sometimes has numbness and tingling down left leg; Additional info: Fall off roof TECHNIQUE: Imaging protocol: Radiologic exam of the pelvis. Views: 1 or 2 view. COMPARISON: CT ABDOMEN PELVIS W CON 02/12/2020 4:53 PM FINDINGS: Bones/joints: No acute fracture. Sacrum is partially obscured by bowel contents. Soft tissues: Unremarkable. IMPRESSION: No acute findings.
--- NOTE | 2022-07-31 17:13 | CT_ITS ---
PROCEDURE INFORMATION: Exam: CT Thoracic Spine Without Contrast Exam date and time: 07/31/2022 5:37 PM Age: 37 years old Clinical indication: Injury or trauma; Fall; Blunt trauma (contusions or hematomas); Patient HX: Fell off roof 2 days ago, pain in back and sometimes has numbness and tingling down left leg; Additional info: Fall off roof TECHNIQUE: Imaging protocol: Computed tomography of the thoracic spine without contrast. Radiation optimization: All CT scans at this facility use at least one of these dose optimization techniques: automated exposure control; mA and/or kV adjustment per patient size (includes targeted exams where dose is matched to clinical indication); or iterative reconstruction. REPORTING DATA: Count of CT and Cardiac NM exams in prior 12 months: This patient has received 0 known CTs and 0 known cardiac nuclear medicine studies in the 12 months prior to the current study. COMPARISON: CT ABDOMEN PELVIS W CON 02/12/2020 4:53 PM FINDINGS: Bones/joints: No acute thoracic spine vertebral body fracture. Minimal degeneration is seen in the anterior margin of upper thoracic vertebral body endplates. No significant spinal canal stenosis or neural foraminal narrowing. Soft tissues: Calcified mediastinal lymph nodes likely due to old granulomatous disease. IMPRESSION: No acute compression fracture in the thoracic spine.
--- NOTE | 2022-07-31 17:13 | CT_ITS ---
PROCEDURE INFORMATION: Exam: CT Lumbar Spine Without Contrast Exam date and time: 07/31/2022 5:40 PM Age: 37 years old Clinical indication: Injury or trauma; Fall; Blunt trauma (contusions or hematomas); Patient HX: Fell off roof 2 days ago, pain in back and sometimes has numbness and tingling down left leg; Additional info: Fall off roof TECHNIQUE: Imaging protocol: Computed tomography of the lumbar spine without contrast. Radiation optimization: All CT scans at this facility use at least one of these dose optimization techniques: automated exposure control; mA and/or kV adjustment per patient size (includes targeted exams where dose is matched to clinical indication); or iterative reconstruction. REPORTING DATA: Count of CT and Cardiac NM exams in prior 12 months: This patient has received 0 known CTs and 0 known cardiac nuclear medicine studies in the 12 months prior to the current study. COMPARISON: CT THORACIC SPINE WO CON 07/31/2022 5:37 PM FINDINGS: Bones/joints: No acute compression fracture in the lumbar spine. There may be a Schmorl's node superior endplate of L1 unchanged in comparison to 02/12/2020 CT. Near normal alignment with minimal retrolisthesis of L4 on L5 similar to the prior study; marginal osteophytes are seen posteriorly at this level. Soft tissues: Poorly assessed on this bone algorithm study. IMPRESSION: No acute fracture or dislocation in the lumbar spine.
[2022-07-31 19:49] VITALS: BP 142/70; PULSE 63; RESP 19; TEMP 36.8; O2SAT 98
== END 2022-07-31 19:51 | disposition home or self-care (01) ==
PROVIDERS: Emergency Provider Student in an Organized Health Care Education/Training Program; PCP Emergency Medicine
DX: S30.0XXA Contusion of lower back and pelvis, initial encounter (principal); S70.02XA Contusion of left hip, initial encounter; W13.2XXA Fall from, out of or through roof, initial encounter; F17.210 Nicotine dependence, cigarettes, uncomplicated
CPT/HCPCS: 71045; 72128; 72131; 72170; 96372; 99284; 99285

== ENCOUNTER 2024-01-21 10:14 | Outpatient (CLI) | payer SELFPAY ==
[2024-01-21 18:56] LABS: Basophils # 0.1 K/mm3 (0-0.2); Eosinophils # 0.2 K/mm3 (0.0-0.4); Eosinophils % 2.7 % (0.1-12.0); Hematocrit 50.6 % (42.0-52.0); Hemoglobin 17.4 g/dL (14.1-18.0); Lymphocytes # 1.8 K/mm3 (0.7-4.5); Lymphocytes % 31.9 % (10-50); Mean Corpuscular HGB Conc 34.4 g/dL (31.8-35.4); Mean Corpuscular Hemoglobin 30.9 pg (27.0-31.2); Mean Platelet Volume 8.3 fl (7.4-10.4); Monocytes # 0.4 K/mm3 (0.1-1.0); Monocytes % 7.3 % (1.7-9.3); Neutrophils # 3.1 K/mm3 (1.8-7.8); Platelet Count 258 K/mm3 (142-424); Red Blood Count 5.62 M/mm3 (4.60-6.20); Red Cell Distribution Width 13.1 % (11.5-17.5); White Blood Count 5.5 K/mm3 (4.8-10.8)
[2024-01-21 19:17] LABS: Alanine Aminotransferase 28 U/L (12-78); Albumin Level 4.7 g/dl (3.5-5.0); Albumin/Globulin Ratio 1.7 (1.1-1.8); Alkaline Phosphatase 83 U/L (38-126); Anion Gap 12.4 mEq/L (5-15); Aspartate Amino Transferase 33 U/L (17-59); Bilirubin,Total 0.6 mg/dl (0.2-1.3); Blood Urea Nitrogen 15 mg/dl (9-20); Calcium 9.8 mg/dl (8.4-10.2); Carbon Dioxide 29 mmol/L (22.0-30.0); Chloride 102 mmol/L (98-107); Chol/HDL Ratio 4.2 (1-3.5); Cholesterol 212 mg/dl (140-200); Estimated Glomerular Filt Rate 84 ml/min (>60); GFR (African American) 102 ML/MIN (>60); Globulin 2.7 g/dL (1.3-3.2); Glucose 80 mg/dl (74-100); HDL Cholesterol 51 mg/dl (40-60); Potassium 4.4 mmoL/L (3.5-5.1); Sodium 139 mmol/L (136-145); Total Protein,Serum 7.4 g/dl (6.3-8.2); Triglycerides 160 mg/dl (30-150); VLDL Cholesterol 32 mg/dL (0-40)
[2024-01-21 19:31] LABS: Direct LDL Cholesterol 134.61 mg/dL (100-129)
[2024-01-21 19:35] LABS: T4 (Thyroxine) 11.6 ug/dl (5.53-11.0)
[2024-01-21 19:37] LABS: 25-OH Vitamin D, Total 20.8 ng/mL (30-100)
[2024-01-21 19:48] LABS: Thyroid Stimulating Hormone 0.57 uIU/mL (0.465-4.68)
[2024-01-21 22:46] LABS: HIV (1&2) Antibody Rapid NONREACTIVE (NONREACTIVE)
[2024-01-23 05:24] LABS: HCV Ab Non Reactive (Non Reactive)
[2024-01-30 02:14] LABS: Testosterone, Total, LC/MS 162 ng/dL (.)
== END 2024-01-21 23:59 | disposition home or self-care (01) ==
LOC: LAB.DROPOF 01-22 10:15
PROVIDERS: PCP Nurse Practitioner Family; Visit Provider Nurse Practitioner Family
DX: K92.2 Gastrointestinal hemorrhage, unspecified (principal); R59.9 Enlarged lymph nodes, unspecified; Z11.59 Encounter for screening for other viral diseases; Z11.4 Encounter for screening for human immunodeficiency virus [HIV]
CPT/HCPCS: 80053; 80061; 82306; 84403; 84436; 84443; 85025; 86803; 87389

== ENCOUNTER 2024-03-29 06:34 | Day surgery (SDC) | payer OTHER, SELFPAY ==
[2024-03-23 10:22] VITALS: BMI 21.7
[2024-03-29 06:58] VITALS: BP 127/74; PULSE 74; RESP 18; TEMP 36.2; O2SAT 98
--- NOTE | 2024-03-29 07:23 | P.PNANES_ITS ---
[facility] Disclaimer: The information contained in this section may have been updated after the patient was seen, as this information can be updated by other users. Medical History Abnormal colonoscopy GI bleed Surgical History H/O endoscopy Family History Grandmother DM type 2 (diabetes mellitus, type 2) Grandmother Cancer Grandfather Cancer Mother DM type 2 (diabetes mellitus, type 2) Social History (Updated 03/29/24 @ 06:50 by Irish Kendrick RN) Smoking Status: Former smoker tobacco type: cigarettes packs per day: 1 second hand exposure: Yes alcohol intake: never substance use type: denies use current occupational status: unemployed Travel in the last 8 weeks: None housing: house caffeine: Yes Have you lived/traveled outside US in past 30 days?: No Contact w/someone who lives/traveled outside US past 30 days?: No Exposure to someone with infectious disease in past 14 days?: No Do you have a fever (greater than 100.4 F or 38 C)?: No Have you tested positive for COVID-19: No Exposed to someone with COVID-19 in past 14 days?: No Do you have a sore throat?: No Do you have a cough?: No Do you have any weakness?: No Are you experiencing any nausea/vomitting?: No Do you have any diarrhea?: No Are you experiencing any unusual bleeding?: No Do you have any muscle aches/pain?: No Do you have any abdominal pain?: No Are you experiencing loss of taste or smell?: No [facility] Anesthesia Checklist Patient Identification Patient Identification: Arm Band Structural Data Admitted From: Home Planned Operative Procedure/s: EGD/Colonoscopy Consent for Planned Operative Procedure(s) Verified: Yes Verified Documents: Surgical Consent and History and Physical NPO Status Verified Time NPO: 00:00 Additional verifications Anesthesia Reactions: No Airway Assessment Mallampati Score:: Class II C-Spine Mobility Assessed: Yes TMJ Mobility Assessed: Yes Dentition: Good Dentition Neurological Assessment Level of Consciousness: Awake, Alert and Appropriate Anesthesia Plan Anesthesia Risk discussed: Yes Anesthesia Plan: Verified ASA Class: II Anesthesia Type: MAC
[2024-03-29 07:58] VITALS: O2SAT 100
--- NOTE | 2024-03-29 08:00 | P.HP_ITS ---
History of Present Illness *Admission Date: 03/29/24 *Reason for visit:: Globus sensation/bright red blood per rectum *History of present illness: Mr. Quinonez is a 39-year-old gentleman who is here for diagnostic EGD and diagnostic colonoscopy. The patient has had swallowing difficulties with globus sensation. The patient also has had frequent bright red rectal bleeding with blood clots but sometimes appear in his underwear even when he is not having a bowel movement. The examination is deemed medically necessary for diagnostic EGD and colonoscopy. The patient has been seen, interviewed and examined prior to the procedure by both myself and the anesthesia provider. [facility] Disclaimer: The information contained in this section may have been updated after the patient was seen, as this information can be updated by other users. Medical History Abnormal colonoscopy GI bleed Surgical History H/O endoscopy Family History Grandmother DM type 2 (diabetes mellitus, type 2) Grandmother Cancer Grandfather Cancer Mother DM type 2 (diabetes mellitus, type 2) Social History (Updated 03/29/24 @ 06:50 by Irish Kendrick RN) Smoking Status: Former smoker tobacco type: cigarettes packs per day: 1 second hand exposure: Yes alcohol intake: never substance use type: denies use current occupational status: unemployed Travel in the last 8 weeks: None housing: house caffeine: Yes Have you lived/traveled outside US in past 30 days?: No Contact w/someone who lives/traveled outside US past 30 days?: No Exposure to someone with infectious disease in past 14 days?: No Do you have a fever (greater than 100.4 F or 38 C)?: No Have you tested positive for COVID-19: No Exposed to someone with COVID-19 in past 14 days?: No Do you have a sore throat?: No Do you have a cough?: No Do you have any weakness?: No Are you experiencing any nausea/vomitting?: No Do you have any diarrhea?: No Are you experiencing any unusual bleeding?: No Do you have any muscle aches/pain?: No Do you have any abdominal pain?: No Are you experiencing loss of taste or smell?: No Other Medical History Have you received the Flu Vaccine for this season: No Have you received the Pneumonia Vaccine: No Review of Systems Review of Systems Review of systems (narrative): Negative *Cardiovascular Comments: Negative *Gastrointestinal Comments: Negative *Genitourinary Comments: Negative *Musculoskeletal Comments: Negative *Neurologic Comments: Negative Meds Home Medications and Allergies Home Medications ?Medication ?Instructions ?Recorded ?Confirmed ?Type buprenorphine 8 mg-naloxone 2 mg 1 tab sublingual DAILY 01/21/24 03/29/24 History sublingual tablet New Prescriptions to Start Prescriptions: Allergies Allergy/AdvReac Type Severity Reaction Status Date / Time prednisone (PREDNISONE) Allergy Intermediate Hallucinati Verified 03/29/24 06:50 ng Exam Data for Last 24 hours Vital signs and Labs for Last 24 Hours: Temp Pulse Resp BP Pulse Ox O2 Del Method O2 Flow Rate 97.1 F L 74 18 127/74 98 Nasal Cannula 5 03/29/24 06:58 03/29/24 06:58 03/29/24 06:58 03/29/24 06:58 03/29/24 06:58 03/29/24 07:58 03/29/24 07:58 *Routine HEENT Exam Head: Present normocephalic Eye: Present EOMI and PERRL ENT: Present mucous membranes moist *Routine Neck Exam Neck: Present supple *Routine Respiratory Exam Respiratory: Present CTA bilaterally *Routine Cardiovascular Exam Cardiovascular: Present RRR *Routine Abdominal Exam Abdominal: Present soft and normoactive bowel sounds; Absent tenderness *Routine Rectal Exam Rectal:: deferred *Routine Genitalia Exam Genitalia:: deferred *Routine Extremities Exam Extremities: Absent cyanosis, clubbing or edema *Routine Skin Exam Skin: Present warm; Absent rash *Routine Neurological Exam Neurological: Present alert and oriented X3 Assessment and Plan *Assessment and plan (1) GERD (gastroesophageal reflux disease): Status: Acute Category: Medical Code(s): K21.9 - Gastro-esophageal reflux disease without esophagitis (2) Dysphagia: Status: Acute Category: Medical Code(s): R13.10 - Dysphagia, unspecified (3) Globus sensation: Status: Acute Category: Medical Code(s): R09.A2 - Foreign body sensation, throat (4) Bright red rectal bleeding: Status: Acute Category: Medical Code(s): K62.5 - Hemorrhage of anus and rectum (5) Mucus in stool: Status: Acute Category: Medical Code(s): R19.5 - Other fecal abnormalities Plan A/P: 1. GERD with globus sensation and intermittent dysphagia for upper endoscopy and bright red rectal bleeding with blood clots for diagnostic colonoscopy is the preprocedural diagnosis. The patient will be anesthetized/sedated using MAC sedation. The patient has been seen and examined. Cardiac and lung assessment prior to the examination is stable. Proceed with planned diagnostic EGD and colonoscopy
--- NOTE | 2024-03-29 08:03 | HMH.PROCNOTE ---
[facility] Procedure Note Date: 03/29/24 Time: 08:11 Procedure Note:: Upper Endoscopy Procedure Report: Esophagogastroduodenoscopy with cold biopsies and TTS balloon dilation Endoscopost: Robert Deutsch II, MD Referring Physician: MISTI Salinas Date of Procedure: March 29, 2024 Equipment: Olympus GIF 190 standard upper endoscope Sedation: MAC sedation Indications: Mr. Quinonez is a 39-year-old gentleman who is here for diagnostic upper endoscopy. The patient does get some intermittent swallowing difficulties and has globus sensation presently. He has some intermittent heartburn and reflux. The patient does report bright red rectal bleeding with mucus. He has been using ibuprofen intermittently. Diagnostic panendoscopy was performed for further evaluation. Procedure: Prior to the procedure, a history and physical exam was performed, and patient's medications and allergies were reviewed. The risks, benefits and alternatives of the sedation and procedure were discussed with the patient. All questions were answered and informed consent was obtained. The patient was brought to the procedure room. Patient identification and proposed procedure were verified by the physician and the nurse. The patient was placed in a left lateral decubitus position and the scope was passed under direct vision. Throughout the procedure, the patient's blood pressure, pulse, and oxygen saturations were monitored continuously. The upper GI endoscopy was accomplished without difficulty. The patient tolerated the procedure well. Findings: The scope was passed directly into the upper esophagus and advanced to the third portion of the duodenum. The post bulbar duodenum and duodenal bulb were normal with normal mucosa and conniventes. The scope was withdrawn through a normal duodenal bulb and pylorus into the stomach. There was minimal reactive gastropathy of the antrum. The remainder of the body and fundus were normal. Biopsies were taken from the antrum. Upon retroflexion there was a 2 to 3 cm medium sized hiatal hernia. The scope was then withdrawn into the esophagus. There were 2 tongues of salmon-colored mucosa distally that were biopsied to rule out very short segment Gaytan's esophagus. There was no evidence of reflux esophagitis, peptic stricture, furrowing or corrugation. There was no inlet patch. There were tertiary contractions and evidence of mild esophageal dysmotility. The entire esophagus was dilated to 60 Hebrew/20 mm with a TTS hydrostatic balloon. There was mild resistance at the cricopharyngeus. The remainder of the esophageal mucosa was normal. Impression: 1. Nonerosive GERD with mild esophageal dysmotility and medium sized (2 to 3 cm) hiatal hernia 2. Short tongues of salmon-colored mucosa in distal esophagus?rule out short segment Gaytan's esophagus 3. Minimal antral reactive gastropathy Plan: I will follow-up the biopsies. I would recommend PPI therapy. I will proceed with diagnostic colonoscopy if patient is adequately prepped.
--- NOTE | 2024-03-29 08:20 | P.PCN_ITS ---
[facility] Procedure Note Date: 03/29/24 Time: 08:20 Procedure Note:: Sigmoidoscopy procedure Report: Attempted colonoscopy Endoscopist: Robert Deutsch II, MD Referring physician: MISTI Salinas Date of Procedure: March 29, 2023 Equipment: Olympus 190 variable stiffness pediatric colonoscope Sedation: MAC sedation Indication: Mr. Quinonez is a 39-year-old gentleman who is here for diagnostic colonoscopy. The patient has had frequent bright red rectal bleeding with blood clots not just with his bowel movements but sometimes in his underwear. He also will note some mucus with his bowel movements. He did have a colonoscopy more than 10 [address] ago [address] [facility] (Chico Rhodes MD?General Surgery). He struggled with symptoms related to the colonoscopy for a couple weeks afterwards. The patient does report constipation a couple of times a month. He also has obstipation with incomplete defecation and excessive wiping. His bowel movements vary between hard and regular and he does get some straining. Blood can drip into the commode. He reports no external hemorrhoids or hemorrhoid prolapse. He has no rectal pain. He reports no abdominal pain or weight loss. He does state that his paternal uncle had colon cancer in his 50s. He reports no use of aspirin or anticoagulation. He was using ibuprofen intermittently but stopped doing this and now takes Tylenol. Procedure: Prior to the procedure, a history and physical exam was performed, and patient's medications and allergies were reviewed. The risks, benefits and alternatives of the sedation and procedure were discussed with the patient. All questions were answered and informed consent was obtained. The patient was brought to the procedure room. Patient identification and proposed procedure were verified by the physician and the nurse. The patient was placed in a left lateral decubitus position and the scope was passed under direct vision. Throughout the procedure, the patient's blood pressure, pulse, and oxygen saturations were monitored continuously. The colonoscopy was accomplished without difficulty. The patient tolerated the procedure well. Findings: On digital rectal examination there was normal rectal tone. There were no external hemorrhoids. The scope was then inserted through the anal canal to the rectum and advanced to the distal sigmoid. There was abundant solid stool within the sigmoid colon and the scope could not be advanced proximally due to very poor bowel preparation. Upon retroflexion within the rectum there were grade 2 internal hemorrhoids. Impression: 1. Unprepped colonoscopy 2. Grade 2 internal hemorrhoids Plan: Based upon the patient's symptoms with volume of bleeding, mucus and bowel function, he will need full diagnostic colonoscopy. I will offer continued clear liquids today with further preparation and attempt colonoscopy tomorrow.
[2024-03-29 08:21] VITALS: BP 86/44; PULSE 69; RESP 18; TEMP 36.3; O2SAT 97
[2024-03-29 08:31] VITALS: BP 89/51; PULSE 62; RESP 18; O2SAT 97
[2024-03-29 08:41] VITALS: BP 102/62; PULSE 67; RESP 20; O2SAT 99
[2024-03-29 09:10] VITALS: BP 112/62; PULSE 67; RESP 20; O2SAT 99
== END 2024-03-29 09:10 | disposition home or self-care (01) ==
PROVIDERS: PCP Nurse Practitioner Family; Visit Provider Internal Medicine Gastroenterology
PROC: 0DJ08ZZ Inspection of Upper Intestinal Tract, Via Natural or Artificial Opening Endoscopic (ICD-10-PCS; CPT 45378; principal; 2024-03-29 08:00)
DX: K21.9 Gastro-esophageal reflux disease without esophagitis (principal); R13.10 Dysphagia, unspecified; R09.A2 Foreign body sensation, throat; K62.5 Hemorrhage of anus and rectum; R19.5 Other fecal abnormalities; K22.70 Barrett's esophagus without dysplasia; K31.9 Disease of stomach and duodenum, unspecified; K44.9 Diaphragmatic hernia without obstruction or gangrene; K22.4 Dyskinesia of esophagus; K64.1 Second degree hemorrhoids
CPT/HCPCS: 43239; 43249; 45378; C1726

== ENCOUNTER 2024-03-30 11:29 | Day surgery (SDC) | payer OTHER, SELFPAY ==
[2024-03-30 11:46] VITALS: BP 130/70; PULSE 68; RESP 16; TEMP 36.7; O2SAT 99; BMI 22.1
[2024-03-30] MEDS: LACTATED RINGERS 1000ML 1,000 ML 50 ML IV (11:55)
--- NOTE | 2024-03-30 12:31 | P.PNANES_ITS ---
[facility] Disclaimer: The information contained in this section may have been updated after the patient was seen, as this information can be updated by other users. Medical History (Updated 03/30/24 @ 11:49 by Jeri Perdomo RN) History of gastroesophageal reflux (GERD) Abnormal colonoscopy GI bleed Surgical History H/O endoscopy Family History Grandmother DM type 2 (diabetes mellitus, type 2) Grandmother Cancer Grandfather Cancer Mother DM type 2 (diabetes mellitus, type 2) Social History (Updated 03/30/24 @ 11:49 by Jeri Perdomo RN) Smoking Status: Current every day smoker tobacco type: cigarettes packs per day: 1 second hand exposure: Yes alcohol intake: never substance use type: denies use current occupational status: unemployed Travel in the last 8 weeks: None housing: house caffeine: Yes Have you lived/traveled outside [place] in past 30 days?: No Contact w/someone who lives/traveled outside US past 30 days?: No Exposure to someone with infectious disease in past 14 days?: No Do you have a fever (greater than 100.4 F or 38 C)?: No Have you tested positive for COVID-19: No Exposed to someone with COVID-19 in past 14 days?: No Do you have a sore throat?: No Do you have a cough?: No Do you have any weakness?: No Are you experiencing any nausea/vomitting?: No Do you have any diarrhea?: No Are you experiencing any unusual bleeding?: No Do you have any muscle aches/pain?: No Do you have any abdominal pain?: No Are you experiencing loss of taste or smell?: No [facility] Anesthesia Checklist Patient Identification Patient Identification: Arm Band, Family and Verbal (Name & ) Structural Data Admitted From: Home Planned Operative Procedure/s: Colonoscopy Consent for Planned Operative Procedure(s) Verified: Yes Verified Documents: Surgical Consent and History and Physical NPO Status Verified Time NPO: 08:30 Chart Verification Results Verified: CBC, BMP, ECG and Chest Xray Additional verifications Patient : No Anesthesia Reactions: No Previous Colonoscopy: Yes Cardiovascular Assessment Heart Sounds: S1 & S2 Pulse Rhythm: Irregular Peripheral Edema: No Airway Assessment Mallampati Score:: Class II C-Spine Mobility Assessed: Yes TMJ Mobility Assessed: Yes Dentition: Poor Dentition (Nothing loose per pt.) Neurological Assessment Level of Consciousness: Awake, Alert, Appropriate and Follows Commands Hx Seizures: No Numbness or tingling in extremities: No Anesthesia Plan Anesthesia Risk discussed: Yes Anesthesia Plan: Verified ASA Class: III Anesthesia Type: MAC
--- NOTE | 2024-03-30 12:46 | HMH.PROCNOTE ---
[facility] Procedure Note Date: 03/30/24 Time: 13:05 Procedure Note:: Colonoscopy Procedure Report: Colonoscopy with hemorrhoid band ligation Endoscopist: Robert Deutsch II, MD Referring physician: MISTI Salinas Date of Procedure: March 30, 2024 Equipment: Olympus 190 variable stiffness pediatric colonoscope Sedation: MAC sedation Indication: Mr. Quinonez is a 39-year-old gentleman who is here for diagnostic colonoscopy. He did have an attempted colonoscopy/sigmoidoscopy yesterday which was fairly poorly prepped with solid stool down to the sigmoid colon. The patient has had frequent bright red rectal bleeding with blood clots not just with his bowel movements but sometimes in his underwear. He also will note some mucus with his bowel movements. He did have a colonoscopy more than 10 years ago in [facility] (Chico Rhodes MD?General Surgery). He struggled with symptoms related to the colonoscopy for a couple weeks afterwards. The patient does report constipation a couple of times a month. He also has obstipation with incomplete defecation and excessive wiping. His bowel movements vary between hard and regular and he does get some straining. Blood can drip into the commode. He reports no external hemorrhoids or hemorrhoid prolapse. He has no rectal pain. He reports no abdominal pain or weight loss. He does state that his paternal uncle had colon cancer in his 50s. He reports no use of aspirin or anticoagulation. He was using ibuprofen intermittently but stopped doing this and now takes Tylenol Procedure: Prior to the procedure, a history and physical exam was performed, and patient's medications and allergies were reviewed. The risks, benefits and alternatives of the sedation and procedure were discussed with the patient. All questions were answered and informed consent was obtained. The patient was brought to the procedure room. Patient identification and proposed procedure were verified by the physician and the nurse. The patient was placed in a left lateral decubitus position and the scope was passed under direct vision. Throughout the procedure, the patient's blood pressure, pulse, and oxygen saturations were monitored continuously. The colonoscopy was accomplished without difficulty. The patient tolerated the procedure well. Findings: On digital rectal examination there was normal rectal tone. There were no external hemorrhoids. The colonoscope was introduced through the anal canal to the rectum and advanced to the cecum. The ileocecal valve and appendiceal orifice were identified. The scope was advanced a short distance into the ileum which appeared grossly normal. The scope was then withdrawn into the colon. There was a single diverticulum in the proximal ascending colon. The remainder of the cecum, ascending, transverse, descending, sigmoid and rectum were grossly normal. There were no mucosal abnormalities identified. Upon retroflexion within the rectum there were grade 2-3 internal hemorrhoids.3 columns of hemorrhoids were banded using 3 bands with excellent ligation effect. The preparation was good throughout with [place] Preparation Score of 8 out of 9. The cecal time was 12 minutes. Impression: 1. Normal colonoscopy with intubation of the terminal ileum 2. Grade 2-3 internal hemorrhoids status post band ligation x 3 Plan: I would encourage the patient to continue psyllium bulking fiber supplementation on a long-term daily maintenance basis. I will discuss the findings with the patient and family.
[2024-03-30 13:12] VITALS: BP 118/73; PULSE 65; RESP 16; TEMP 36.3; O2SAT 98
[2024-03-30 13:22] VITALS: BP 122/78; PULSE 60; RESP 16; O2SAT 99
[2024-03-30 13:32] VITALS: BP 126/79; PULSE 62; RESP 17; O2SAT 99
[2024-03-30 13:42] VITALS: BP 129/66; PULSE 67; RESP 18; O2SAT 100
[2024-03-30] MEDS: OXYCODONE 5MG W/APAP 325MG TABLET 1 EACH PO (13:47)
== END 2024-03-30 13:42 | disposition home or self-care (01) ==
PROVIDERS: PCP Nurse Practitioner Family; Visit Provider Internal Medicine Gastroenterology
PROC: 0DJD8ZZ Inspection of Lower Intestinal Tract, Via Natural or Artificial Opening Endoscopic (ICD-10-PCS; CPT 45378; principal; 2024-03-30 13:00)
DX: K59.00 Constipation, unspecified (principal); K62.5 Hemorrhage of anus and rectum; K64.8 Other hemorrhoids
CPT/HCPCS: 45398; C1889; J7120

== ENCOUNTER 2024-08-30 15:18 | Outpatient (CLI) | payer OTHER, SELFPAY ==
--- NOTE | 2024-08-30 15:20 | XR_ITS ---
FINAL REPORT TECHNIQUE: Chest PA & Lateral CLINICAL HISTORY: Shortness of breath Patient states hx of hernia COMPARISON: 05/18/2019 FINDINGS: 2 views of the chest were performed. The heart size is normal. The mediastinum is within normal limits. There are mild chronic changes at the lung bases. There is no acute cardiopulmonary process. There are no pleural effusions. There is no pneumothorax. The bony thorax appears intact. IMPRESSION: No acute cardiopulmonary process. Reviewed, Interpreted and Dictated by Gabe Montelongo MD Transcribed by Alexandrea Jean-Baptiste Authenticated and . [facility]
[2024-08-30 16:48] LABS: Microscopic, Urine URINE MICROSCOPIC (MICROSCOPIC)
[2024-08-30 17:13] LABS: Basophils # 0.1 K/mm3 (0-0.2); Basophils % 1.3 % (0.1-2.0); Eosinophils # 0.3 Kmm3 (0.0-0.4); Eosinophils % 3.7 % (0.1-12.0); Hematocrit 44.9 % (42.0-52.0); Hemoglobin 15.1 g/dL (14.1-18.0); Immature Granulocytes # 0.02 10^3uL; Immature Granulocytes % 0.3 %; Lymphocytes # 1.9 K/mm3 (0.7-4.5); Lymphocytes % 25.6 % (10-50); Mean Corpuscular HGB Conc 33.6 g/dL (31.8-35.4); Mean Corpuscular Hemoglobin 30.1 pg (27.0-31.2); Mean Corpuscular Volume 89.6 fl (80-94); Monocytes # 0.5 K/mm3 (0.1-1.0); Neutrophils # 4.7 K/mm3 (1.8-7.8); Neutrophils % 62.1 % (37.0-80.0); Nucleated Red Blood Cells # 0 10^3/uL; Nucleated Red Blood Cells % 0 %; Platelet Count 278 K/mm3 (142-424); Red Blood Count 5.01 M/mm3 (4.60-6.20); Red Cell Distribution Width 12.4 % (11.5-17.5); Red Cell Distribution Width-SD 40.5 fL; White Blood Count 7.6 K/mm3 (4.8-10.8)
[2024-08-30 17:29] LABS: Appearance,Urine CLEAR (Clear); Bilirubin,Urine Negative (Negative); Blood, Urine Negative (Negative); Color,Urine YELLOW (Yellow); Glucose,Urine (UA) Negative (Negative); Ketones,Urine Negative (Negative); Leukocyte Esterase,Urine Negative (Negative); Nitrate,Urine Negative (Negative); Protein,Urine Negative (Negative); Specific Gravity, Urine 1.025 (1.005-1.030); Urobilinogen,Urine 0.2 EU/dl (0.2)
[2024-08-30 17:33] LABS: Albumin Level 4.7 g/dl (3.5-5.0); Chloride 99 mmol/L (98-107); Sodium 138 mmol/L (136-145)
[2024-08-30 17:34] LABS: Potassium 4.8 mmoL/L (3.5-5.1)
[2024-08-30 17:36] LABS: Alanine Aminotransferase 30 U/L (12-78); Albumin/Globulin Ratio 1.6 (1.1-1.8); Alkaline Phosphatase 73 U/L (38-126); Anion Gap 12.8 mEq/L (5-15); Aspartate Amino Transferase 35 U/L (17-59); Bilirubin,Total 0.5 mg/dl (0.2-1.3); Blood Urea Nitrogen 10 mg/dl (9-20); Carbon Dioxide 31 mmol/L (22.0-30.0); Cholesterol 197 mg/dl (140-200); Estimated Glomerular Filt Rate 94 ml/min (>60); GFR (African American) 114 ML/MIN (>60); Iron 113 ug/dL (49-181); Total Protein,Serum 7.7 g/dl (6.3-8.2); Triglycerides 287 mg/dl (30-150); VLDL Cholesterol 57 mg/dL (0-40)
[2024-08-30 17:37] LABS: Calcium 9.5 mg/dl (8.4-10.2); Chol/HDL Ratio 4.9 (1-3.5); Glucose 91 mg/dl (74-100); HDL Cholesterol 40 mg/dl (40-60)
[2024-08-30 17:42] LABS: Bacteria,Urine Trace /lpf
[2024-08-30 17:47] LABS: Total Iron Binding Capacity 349 ug/dL (261-462)
[2024-08-30 17:48] LABS: Direct LDL Cholesterol 100.88 mg/dL (100-129)
[2024-08-30 17:55] LABS: 25-OH Vitamin D, Total 16.1 ng/mL (30-100); Free T4 (Free Thyroxine) 1.26 ng/dl (0.78-2.19)
[2024-08-30 18:08] LABS: Thyroid Stimulating Hormone 0.86 uIU/mL (0.465-4.68)
[2024-08-30 18:12] LABS: Ferritin 68.8 ng/ml (17.9-464)
[2024-08-30 18:41] LABS: Hemoglobin A1C 6.2 % (4.0-6.0)
[2024-08-30 18:47] LABS: Vitamin B12 997 pg/mL (239-931)
== END 2024-08-30 23:59 | disposition home or self-care (01) ==
LOC: RAD 15:19
PROVIDERS: PCP Nurse Practitioner Family; Visit Provider Nurse Practitioner Family
DX: G47.33 Obstructive sleep apnea (adult) (pediatric) (principal); K21.9 Gastro-esophageal reflux disease without esophagitis; I10 Essential (primary) hypertension; E11.9 Type 2 diabetes mellitus without complications; R06.00 Dyspnea, unspecified; R07.9 Chest pain, unspecified; R04.2 Hemoptysis; R53.83 Other fatigue; R41.3 Other amnesia; Z13.220 Encounter for screening for lipoid disorders
CPT/HCPCS: 71046; 80053; 80061; 81001; 82306; 82607; 82728; 83036; 83540; 83550; 84439; 84443; 85025; 87086

== ENCOUNTER 2024-12-27 15:57 | Emergency (ER) | payer OTHER, SELFPAY ==
[2024-12-27 16:14] VITALS: BP 156/76; PULSE 91; RESP 18; TEMP 36.7; O2SAT 96; BMI 26.4
--- OUTSIDE RECORDS SUMMARY | 2024-12-27 16:19 | XMS_ITS | Encounter Summary ---
Author Organization Healthcare Address [address] [place] [address] Care Team Providers Care Manager Intel Name Role Phone Unavailable Primary Care Provider Unavailabl e Reason for Referral * Consultation (Routine) - Authorized Specialty Diagnoses / Procedures Referred By César thomas Referred To Contact General Surgery Diagnoses Hiatal hernia Referral ID Status Reason Start Date Expiration Date V isits Requested Visits Authorized [id number] Authorized 09/15/2024 03/17/2026 1 1 Encounter Details Date Type Department Care Team (Late st Contact Info) Description 09/15/2024 Community Orders Community Practice [address] [place] [phone] Robert Deutsch MD [address] [place] [address] [place] [phone] Hiatal hernia (Primary Dx) Social History Tobacco Use Types Packs/Day Years Used Date Smoking Tobacco: Every Day Sex and Gender Information Value Date Recorded Sex Assigned at Not on file Legal Sex Male 8:56 PM EDT Gender Identity Not on file Sexual Orientation Not on file documented as of this encounter Plan of Treatment Scheduled Referrals Name Type Priority Associated Diagnoses Order Schedule Ambulatory Referral to General Surgery ([facility]) Outpatient Referral Routine Hiatal hernia 1 Occurrences starting 09/15/2024 until 03/19/2026 documented as of this encounter Visit Diagnoses Diagnosis Hiatal hernia- Primary Diaphragmatic hernia without mention of obstruction or gangrene documented in this encounter
--- OUTSIDE RECORDS SUMMARY | 2024-12-27 16:19 | XMS_ITS | Clinical Summary ---
Author Organization Healthcare Address [address] [place] [address] Care Team Providers Care Care Analyst Name Role Phone Unavailable Primary Care Provider Unavailabl e Social History Tobacco Use Types Packs/Day Years Used Date Smoking Tobacco: Every Day Sex and Gender Information Value Date Recorded Sex Assigned at Not on file Legal Sex Male 8:56 PM EDT Gender Identity Not on file Sexual Orientation Not on file Last Filed Vital Signs Vital Sign Reading Time Taken Comments Blood Pressure - - Pulse - - Temperature - - Respiratory Rate - - Oxygen Saturation - - Inhaled Oxygen Concentration - - Weight 69.8 kg (153 lb 15.9 oz) 017 1:04 PM EDT Height 175.3 cm (5' 9 ) 07/19/2016 1:04 PM EDT Body Mass Index 22.74 07/19/2016 1:04 PM EDT Plan of Treatment Health Maintenance Due Date Last Done Comments [facility]-Depression Screening 1986 [facility]-Infant/Child/Adol SDOH Screenings 1986 [facility]-Hepatitis B Vaccines (3 of 3 - 3-dose series) 02/01/1998 12/05/1997, 10/12/1997 [facility]-Varicella Vaccines (1 of 2 - 13+ 2-dose series) 1999 [facility]- SDOH Screenings 02/19/2004 [facility]-Adult SDOH Screenings 02/19/2004 [facility]-DTaP,Tdap,and Td Vaccines (1 - Tdap) 2005 HPV Vaccines (1 - 3-dose SCDM series) 2013 [facility]-VBUSR-75 Vaccine (2 - season) 2024 04/23/2021 [facility]-Influenza Vaccine (#1) 2024 [facility]-Zoster Vaccines (1 of 2) 02/19/2036 [facility]-HIB Vaccines Aged Out No longer e ligible based on patient's age to complete this topic [facility]-Hepatitis A Vaccines Aged Out No longer eligible based on patient's age to complete this topic [facility]-IPV Vaccines Aged Out No longer e ligible based on patient's age to complete this topic [facility]-Pneumococcal Vaccine: Pediatrics (0 to 5 Years) and At-Risk Patients (6 to 49 Years) Aged Out No longer eligible b ased on patient's age to complete this topic [facility]-Rotavirus Vaccines Aged Out No lo nger eligible based on patient's age to complete this topic Insurance [employer]
--- NOTE | 2024-12-27 16:40 | CT_ITS ---
PROCEDURE INFORMATION: Exam: CT Abdomen And Pelvis With Contrast Exam date and time: 12/27/2024 6:04 PM Age: 39 years old Clinical indication: Abdominal pain TECHNIQUE: Imaging protocol: Computed tomography of the abdomen and pelvis with contrast. Radiation optimization: All CT scans at this facility use at least one of these dose optimization techniques: automated exposure control; mA and/or kV adjustment per patient size (includes targeted exams where dose is matched to clinical indication); or iterative reconstruction. Contrast material: ISOVUE; Contrast volume: 75 ml; Contrast route: IV; COMPARISON: CT ABDOMEN PELVIS W CON 02/12/2020 4:53 PM FINDINGS: Liver: Mild intrahepatic and extrahepatic biliary dilatation. Gallbladder and biliary ducts: See Liver finding. Pancreas: Normal. No ductal dilation. Spleen: Normal. No splenomegaly. Adrenal glands: Normal. No mass. Kidneys and ureters: Normal. No hydronephrosis. Stomach and bowel: Moderate amount of stool in the colon. Borderline abnormal small bowel wall thickening. Appendix: Unremarkable appendix. Intraperitoneal space: Unremarkable. No free air. No significant fluid collection. Vasculature: Duplicated IVC. The arteries demonstrate minimal atherosclerotic disease. Lymph nodes: Unremarkable. No enlarged lymph nodes. Urinary bladder: Unremarkable as visualized. Reproductive: Unremarkable as visualized. Bones/joints: Unremarkable. No acute fracture. Soft tissues: Unremarkable. IMPRESSION: 1. Mild intrahepatic and extrahepatic biliary dilatation. This is of indeterminate significance. If there is clinical evidence of biliary obstruction, consider MRCP for further evaluation. 2. Moderate amount of stool in the colon. 3. Borderline abnormal small bowel wall thickening. Please exclude enteritis.
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
[2024-12-27] MEDS: SODIUM CHLORIDE 0.9% 10ML VIAL 8 ML IV (17:23)
[2024-12-27] MEDS: KETOROLAC 30MG/ML VIAL 30 MG IV (17:23)
[2024-12-27] MEDS: FAMOTIDINE 20MG/2ML VIAL 20 MG IV (17:23)
[2024-12-27 17:31] LABS: Hematocrit 45.9 % (42.0-52.0); Hemoglobin 15.8 g/dL (14.1-18.0); Immature Granulocytes % 0.2 %; Mean Corpuscular HGB Conc 34.4 g/dL (31.8-35.4); Mean Corpuscular Hemoglobin 30.6 pg (27.0-31.2); Mean Corpuscular Volume 89.0 fl (80-94); Nucleated Red Blood Cells % 0 %; Platelet Count 271 K/mm3 (142-424); Red Blood Count 5.16 M/mm3 (4.60-6.20); Red Cell Distribution Width-SD 40.5 fL; White Blood Count 6.3 K/mm3 (4.8-10.8)
[2024-12-27 17:44] LABS: Alanine Aminotransferase 27 U/L (12-78); Albumin Level 3.6 g/dl (3.5-5.0); Albumin/Globulin Ratio 1.0 (1.1-1.8); Alkaline Phosphatase 90 U/L (38-126); Anion Gap 10.3 mEq/L (5-15); Aspartate Amino Transferase 33 U/L (17-59); Bilirubin,Total 0.5 mg/dl (0.2-1.3); Blood Urea Nitrogen 16 mg/dl (9-20); Calcium 9.3 mg/dl (8.4-10.2); Carbon Dioxide 32 mmol/L (22.0-30.0); Chloride 98 mmol/L (98-107); Creatinine Clearance Estimated 111 mL/min (50-200); Creatinine,Serum 1.10 mg/dl (0.66-1.25); Estimated Glomerular Filt Rate 75 ml/min (>60); GFR (African American) 91 ML/MIN (>60); Globulin 3.6 g/dL (1.3-3.2); Glucose 91 mg/dl (74-100); Lipase 27 U/L (23-300); Magnesium 1.8 mg/dl (1.6-2.3); Potassium 4.3 mmoL/L (3.5-5.1); Sodium 136 mmol/L (136-145); Total Protein,Serum 7.2 g/dl (6.3-8.2)
--- NOTE | 2024-12-27 17:52 | ECG_ITS ---
APPROVED REPORT Exam: Resting ECG HR:65 bpm ECG Measurements Heart Rate 65 AXES MD 130 P 72 QRSd 97 QRS 95 QT 373 T 51 QTc 385 Conclusion SINUS RHYTHM BORDERLINE RIGHT AXIS DEVIATION [QRS AXIS > 90] POSSIBLE RIGHT VENTRICULAR CONDUCTION DELAY [RSR (QR) IN V1/V2] EARLY REPOLARIZATION [ST ELEVATION WITH NORMALLY INFLECTED T-WAVE] BORDERLINE ECG UNCONFIRMED REPORT Electronically signed by : NILA PAL, 12/28/2024 06:26:47
[2024-12-27] MEDS: IOPAMIDOL-370 (76%);100ML BOTTLE 75 ML IV (18:03)
[2024-12-27] MEDS: SODIUM CHLORIDE 0.9% 10ML SYR (RAD ONLY) 10 ML IV (18:03)
[2024-12-27 19:10] VITALS: BP 127/83; PULSE 70; RESP 20; TEMP 36.8; O2SAT 96
== END 2024-12-27 19:13 | disposition home or self-care (01) ==
PROVIDERS: Nurse Practitioner; Emergency Provider Student in an Organized Health Care Education/Training Program; PCP Nurse Practitioner Family
DX: R10.9 Unspecified abdominal pain (principal)
CPT/HCPCS: 74177; 80053; 83690; 83735; 85025; 93005; 96374; 96375; 99284; J1308; J1885; Q9967